=== PATIENT | female | born 1965 | race Caucasian/White ===

== ENCOUNTER 2016-12-17 18:54 | Emergency (ER) ==
[2016-12-17 19:06] VITALS: BP 144/84; TEMP 98.8; BMI 20.3
[2016-12-17 19:17] LABS: BILIRUBIN,URINE Negative (NEGATIVE); KETONES,URINE Negative (NEGATIVE); LEUKOCYTE ESTERASE ,URINE Negative (NEGATIVE); NITRITE,URINE Negative (NEGATIVE); PROTEIN,URINE Negative (NEGATIVE); URINE, BLOOD Trace-intact (NEGATIVE)
[2016-12-17 19:18] LABS: BASOPHILS # (AUTO) 0.1 K/uL (0-0.2); BASOPHILS % (AUTO) 0.7 % (0.0-3.0); EOSINOPHILS # (AUTO) 0.1 K/ul (0.0-0.7); EOSINOPHILS % (AUTO) 1.5 % (0.0-7.0); HEMATOCRIT 43.8 % (37.0-47.0); HEMOGLOBIN 14.8 g/dl (12.0-16.0); IMMATURE GRANULOCYTE % (AUTO) 0.2 % (0.0-5.0); LYMPHOCYTES # (AUTO) 2.6 K/uL (0.60-3.4); LYMPHOCYTES % (AUTO) 29.2 (10.0-50.0); MEAN CORPUSCULAR HEMOGLOBIN 28.7 pg (27.0-31.0); MEAN CORPUSCULAR HGB CONC 33.8 (31.8-35.4); MONOCYTES # (AUTO) 0.7 K/uL (0.4-2.0); MONOCYTES % (AUTO) 7.8 (0-10); NEUTROPHILS # (AUTO) 5.4 K/ul (2.0-6.9); NEUTROPHILS % (AUTO) 60.6; PLATELET COUNT 261 10^3/uL (140-440); RED BLOOD COUNT 5.15 10^6/ul (4.20-5.40); WHITE BLOOD COUNT 8.84 K/ul (4.6-10.2)
[2016-12-17 19:20] LABS: ADD URINE MICROSCOPIC YES
[2016-12-17 19:21] LABS: URINE PREGNANCY INTERNAL QC INTERNAL QC VALID
[2016-12-17 19:25] LABS: BACTERIA,URINE TRACE (NOT PRESENT)
[2016-12-17 19:37] LABS: ALBUMIN 4.5 g/dL (3.4-5.0); ALBUMIN/GLOBULIN RATIO 1.25; ANION GAP 16.9; BILIRUBIN,TOTAL 0.35 mg/dL (0.00-1.20); BUN/CREATININE RATIO 14.63; CALCIUM 9.7 mg/dL (8.2-10.2); CREATININE 1.23 mg/dL (0.60-1.30); POTASSIUM 3.9 mmol/L (3.5-5.10); TOTAL PROTEIN 8.1 g/dL (6.4-8.2)
[2016-12-17 19:51] LABS: ERYTHROCYTE SEDIMENTATION RATE 8 mm/hr (0-20); ESR INTERNAL QC INTERNAL QC VALID
--- NOTE | 2016-12-17 20:12 | CT ---
Exam: CT of the abdomen pelvis without intravenous contrast. Comparison: None available. Reason for exam: Abdominal cramping and pressure FINDINGS: No pneumothorax or focal consolidation is seen in the partially imaged lung bases. Image interpretation is limited by the lack of intravenous contrast administration The liver, spleen, adrenal glands, gallbladder, and pancreas appear grossly unremarkable within the limitations of a noncontrasted exam. No hydronephrosis, hydroureter, or nephrolithiasis is seen in either kidney. No inflammatory change s are seen within the abdominal or pelvic fat. No focal small bowel dilatation or transition point. The appendix is unremarkable. The bladder appears grossly unremarkable. The pelvic structures are unremarkable. No suspicious appearing osteoblastic or osteolytic lesions. Impression: No acute inflammatory findings are seen to explain patient's symptomology. Report faxed at 2008 hours on 12/17/2016.
--- NOTE | 2016-12-17 20:29 | ED.PDOC ---
General ED Provider: Dr. JODIE BOSTON-ER Chief Complaint: Urinary Problem Stated Complaint: i have a lot of pressure in my bladder Time Seen by Physician: 18:55 Mode of Arrival: Walk-In Information Source: Patient Exam Limitations: No limitations Primary Care Provider: JODIE BOSTON Nursing and Triage Documentation Reviewed and Agree: Yes Complaint Exam - UTI Female Complaint/Exam Patient Complains of: Reports: Painful urination Onset/Duration: 2 dashy Symptoms Are: Still present Timing: Constant Initial Severity: Mild Current Severity: Mild Location of Pain: Reports: Suprapubic Associated Signs and Symptoms: Denies: Fever, Chills, Flank pain, Dyspareunia, Vaginal discharge Patient Rh Status: Unknown Related Surgical History: Reports: None CVA Tenderness: No Suprapubic Tenderness: No Differential Diagnoses: Cystitis Review of Systems - Review Of Systems Constitutional: Reports: No symptoms Eyes: Reports: No symptoms Ears, Nose, Mouth, Throat: Reports: No symptoms, Throat swelling Respiratory: Reports: No symptoms Cardiac: Reports: No symptoms GI: Reports: No symptoms : Reports: Dysuria, Frequency Musculoskeletal: Reports: No symptoms Skin: Reports: No symptoms Neurological: Reports: No symptoms, Unable to move upper ext Endocrine: Reports: No symptoms Hematologic/Lymphatic: Reports: No symptoms All Other Systems: Reviewed and Negative Past Medical History - Past Medical History Previously Healthy: Yes Endocrine: Reports: None Cardiovascular: Reports: None Respiratory: Reports: None Hematological: Reports: None Gastrointestinal: Reports: None Genitourinary: Reports: None Neuro/Psych: Reports: None Musculoskeletal: Reports: None Cancer: Reports: None Last Menstrual Period: AUGUST 2008 - Surgical History General Surgical History: Reports: Unknown - Family History Family History: Reports: Unknown - Social History Smoking Status: Never smoker Hx Substance Use: No Alcohol Screening: None Lives: With family Physical Exam - Physical Exam Appearance: Well-appearing, No pain distress, Well-nourished Eyes: IRISH, EOMI, Conjunctiva clear ENT: Ears normal, Nose normal, Oropharynx normal Neck: Supple Respiratory: Airway patent, Breath sounds clear, Breath sounds equal, Respirations nonlabored Cardiovascular: RRR, Pulses normal, No rub, No murmur GI/: Soft, Nontender, No masses, Bowel sounds normal, No Organomegaly Musculoskeletal: Normal strength Skin: Warm, Dry, Normal color Neurological: Sensation intact, Motor intact, Reflexes intact, Cranial nerves intact, Alert, Oriented Psychiatric: Affect appropriate, Mood appropriate Interpretation - Radiology Interpretation Radiology Interpretation By: Radiologist Radiology Results: Negative Exam Interpreted: CT Scan Critical Care Note - Critical Care Note Total Time (mins): 0 Course - Course Hematology/Chemistry: 12/17/16 19:15 12/17/16 19:15 Orders, Labs, Meds: Lab Review 12/17/16 12/17/16 19:09 19:15 WBC 8.84 RBC 5.15 Hgb 14.8 Hct 43.8 MCV 85.0 MCH 28.7 MCHC 33.8 RDW Coeff of Oc 12.8 Plt Count 261 Immature Gran % (Auto) 0.2 Neut % (Auto) 60.6 Lymph % (Auto) 29.2 Fleming % (Auto) 7.8 Eos % (Auto) 1.5 Baso % (Auto) 0.7 Immature Gran # (Auto) 0.0 Neut # 5.4 Lymph # 2.6 Fleming # 0.7 Eos # 0.1 Baso # 0.1 ESR 8 Sodium 138 Potassium 3.9 Chloride 101 Carbon Dioxide 24 Anion Gap 16.9 BUN 18 Creatinine 1.23 Estimated GFR (MDRD) 46.00 BUN/Creatinine Ratio 14.63 Glucose 106 Calcium 9.7 Total Bilirubin 0.35 AST 19 ALT 21 Alkaline Phosphatase 62 Total Protein 8.1 Albumin 4.5 Globulin 3.6 Albumin/Globulin Ratio 1.25 Urine Color Yellow Urine Clarity Clear Urine pH 7.0 Ur Specific Amite 1.010 Urine Protein Negative Urine Glucose (UA) Negative Urine Ketones Negative Urine Blood Trace-intact Urine Nitrite Negative Urine Bilirubin Negative Urine Urobilinogen 0.2 Ur Leukocyte Esterase Negative Urine Microscopic RBC 2-5 Ur Squamous Epith Cells 5-10 Urine Bacteria Trace Urine Test Negative Orders Category Date Time Status CBC W/ AUTO DIFF Stat LAB 12/17/16 19:15 Completed COMPREHENSIVE METABOLIC PANEL Stat LAB 12/17/16 19:15 Completed ESR Stat LAB 12/17/16 19:15 Completed URINALYSIS C & S IF INDICATED Stat LAB 12/17/16 19:09 Completed URINE CULTURE Stat LAB 12/17/16 19:09 Ordered URINE Stat LAB 12/17/16 19:[address] ABDOMEN/PELVIS WO CONTRAST Stat RADS 12/17/16 19:05 Completed Vital Signs: Temp Pulse Resp BP Pulse Ox 12/17/16 18:54 98.8 F 66 16 144/84 H 98 Departure - Departure Time of Disposition: 20:28 Disposition: HOME SELF-CARE Discharge Problem: Urinary symptoms Instructions: Dysuria (ED) Condition: Good Pt referred to PMD for follow-up: Yes Additional Instructions: pyridium 200mg tid with food #9---call end of this week for report Allergies/Adverse Reactions: Allergies No Known Allergies Allergy (Unverified 12/17/16 19:00) Home Medications: Ambulatory Orders Esomeprazole Magnesium [Nexium] 20 mg PO DAILY 10/14/14 Estrogen,Con/M-Progest Acet [Prempro 0.3 mg-1.5 mg Tablet] 1 tab PO DAILY Lorazepam [Ativan] 1 mg PO PRN PRN 10/27/14 Mirtazapine [Remeron] 15 mg PO DAILY 12/17/16 Disposition Discussed With: Patient, Family
== END 2016-12-17 20:31 | disposition home or self-care (01) ==
LOC: ED 18:54
DX: R30.0 Dysuria (principal); R35.0 Frequency of micturition
CPT/HCPCS: 36415; 80053; 81001; 81025; 85025; 85651; 87086; 99283

== ENCOUNTER 2017-10-10 07:14 | Outpatient (CLI) ==
--- NOTE | 2017-10-10 09:52 | US ---
Exam: Ultrasound kidneys History: Decreased kidney function FINDINGS: The right kidney measures 7.8 cm long axis. Parenchymal echogenicity and vascularity are normal. Th ere is no hydronephrosis or perinephric collection. Cortical thickness of 0.7 cm. The left kidney measures 8.9 cm long axis. Parenchymal echogenicity is normal. No hydronephrosis or perinephric collection. Cortical thickness of 1.1 cm. The urinary bladder is nondistended. Ureter al jets are not seen. Impression: 1. Sonographically normal kidneys without hydronephrosis.
== END 2017-10-10 07:15 | disposition home or self-care (01) ==
LOC: RAD 07:14
PROVIDERS: ATTEND Family Medicine
DX: N28.9 Disorder of kidney and ureter, unspecified (principal)
CPT/HCPCS: 76770

== ENCOUNTER 2018-10-30 09:52 | Outpatient (CLI) ==
--- NOTE | 2018-10-30 15:09 | DI ---
EXAM: Right toe first digit three-view HISTORY: Injury right big toe COMPARISON: None FINDINGS: Comminuted and minimally displaced fracture of the distal phalanx first digit, with probab le intra-articular extension and additional fracture line that extends to the distal tuft. No disloc ation. Soft tissue swelling great toe. IMPERSSION: Fracture distal phalanx first digit
== END 2018-10-30 09:53 | disposition home or self-care (01) ==
LOC: RAD 09:52
PROVIDERS: ATTEND Family Medicine
DX: S99.921A Unspecified injury of right foot, initial encounter (principal)